=== PATIENT | female | born 1980 | race Two or more races ===

== ENCOUNTER 2016-10-02 04:29 | Emergency (ER) | payer OTHER ==
[2016-10-02 04:40] VITALS: BP 114/72
== END 2016-10-02 05:59 | disposition left against medical advice (07) ==
LOC: ER 04:29
DX: Z53.21 Procedure and treatment not carried out due to patient leaving prior to being seen by health care provider (principal)

== ENCOUNTER 2019-01-13 02:35 | Emergency (ER) | payer SELFPAY ==
[2019-01-13 03:03] VITALS: BP 108/66
[2019-01-13] MEDS ORDERED: ACETAMINOPHEN 325 MG TABLET PO ONE (04:58)
== END 2019-01-13 05:26 | disposition left against medical advice (07) ==
LOC: ER 02:35
DX: Z53.21 Procedure and treatment not carried out due to patient leaving prior to being seen by health care provider (principal)